=== PATIENT | female | born 2000 ===

== ENCOUNTER 2024-06-01 14:53 | Inpatient (IN) | payer MEDICAID ==
[2024-06-01 15:49] LABS: APPEARANCE,URINE SLT CLOUDY; BILIRUBIN,URINE NEGATIVE (NEGATIVE); COLOR,URINE YELLOW; GLUCOSE,URINE >=1000 mg/dL (NEGATIVE); KETONES,URINE NEGATIVE (NEGATIVE); LEUKOCYTE ESTERASE,URINE NEGATIVE (NEGATIVE); NITRITE,URINE NEGATIVE (NEGATIVE); OCCULT BLOOD,URINE NEGATIVE (NEGATIVE); PH,URINE 5.5 (5.0-8.0); PROTEIN,URINE 30 mg/dL (NEGATIVE); UROBILINOGEN,URINE 0.2 EU/dL (<2.0)
[2024-06-01 15:50] LABS: HEMATOCRIT 32.8 % (37.0-47.0); HEMOGLOBIN 10.8 g/dL (12.0-16.0); MEAN CORPUSCULAR HEMOGLOBIN 26.3 pg (28.0-32.0); MEAN CORPUSCULAR HGB CONC 32.9 g/dL (32.0-36.0); MEAN PLATELET VOLUME 11.2 fL (9.4-12.3); PLATELET COUNT,PLT 229 K/uL (150-400); WHITE BLOOD CELL COUNT,WBC 8.24 K/uL (3.9-11.3)
[2024-06-01 16:18] LABS: CREATININE,URINE RAND 92.4 mg/dL; PROTEIN CREATININE RATIO,URINE 0.9; PROTEIN,URINE RANDOM 80.1 mg/dL (<11.9)
[2024-06-01 16:25] LABS: A/G RATIO 0.5 (0.9-1.6); ALBUMIN 2.3 g/dL (3.4-5.0); BILIRUBIN TOTAL 0.5 mg/dL (0.2-1.0); CALCIUM 8.9 mg/dL (8.5-10.1); CARBON DIOXIDE,CO2 19.3 mmol/L (21.0-32.0); CREATININE 0.6 mg/dL (0.6-1.0); EST CRCL DRUG DOSING (CG) 136.51 mL/min; POTASSIUM,K 3.9 mmol/L (3.5-5.1); PROTEIN TOTAL,TP 6.7 g/dL (6.4-8.2); URIC ACID 5.1 mg/dL (2.6-7.2)
[2024-06-01] MEDS ORDERED: Sodium Chloride 0.9% 2.5 ML Syringe FLUSH PRN (16:46)
[2024-06-01] MEDS ORDERED: Sodium Chloride 0.9% 10 ML Syringe FLUSH PRN (16:46)
[2024-06-01] MEDS ORDERED: Sodium Chloride 0.9% 20 ML SDV IV PRN (16:46)
[2024-06-01] MEDS: Lactated Ringers 1,000 ML IV SCH (16:50)
[2024-06-01] MEDS ORDERED: Oxytocin/0.9 % Sodium Chloride 30 UNIT/500 ML BAG IV SCH (17:00)
[2024-06-01] MEDS ORDERED: Oxytocin 10 Units/1 ML SDV ONE (17:05)
[2024-06-01] MEDS ORDERED: Tranexamic Acid 1,000 MG/10 ML Vial ONE (17:05)
[2024-06-01] MEDS ORDERED: Ropivacaine 0.5% 5 MG/ML 30 ML SDV ONE (17:05)
[2024-06-01] MEDS ORDERED: Bupivacaine 0.25% 30 ML SDV ONE (17:05)
[2024-06-01] MEDS ORDERED: Ondansetron 4 MG/2 ML SDV ONE (17:05)
[2024-06-01] MEDS ORDERED: Phenylephrine HCl In 0.9% NaCl 1 MG/10 ML Syringe ONE (17:05)
[2024-06-01] MEDS ORDERED: Morphine PF 10 MG/10 ML SDV ONE (17:05)
[2024-06-01] MEDS ORDERED: ceFAZolin 1 GM Vial ONE (17:05)
[2024-06-01] MEDS ORDERED: fentaNYL 100 MCG/2 ML SDV ONE (17:05)
[2024-06-01] MEDS ORDERED: Ketorolac 30 MG/ML SDV ONE (17:05)
[2024-06-01] MEDS ORDERED: EPINEPHrine 1 MG/1 ML Amp ONE (17:05)
[2024-06-01] MEDS ORDERED: droPERidol 5 MG/2 ML SDV IVPUSH PRN (18:33)
[2024-06-01] MEDS ORDERED: fentaNYL 50 MCG/ML SDV IVPUSH PRN (18:33)
[2024-06-01] MEDS ORDERED: Albuterol 0.083% 2.5 MG/3 ML Neb Soln NEB PRN (18:33)
[2024-06-01] MEDS ORDERED: Acetaminophen/oxyCODONE 325-5 MG Tab PO PRN (18:33)
[2024-06-01] MEDS ORDERED: HYDROmorphone 1 MG/ML Syringe IVPUSH PRN (18:33)
[2024-06-01] MEDS ORDERED: Naloxone 0.4 MG/ML SDV IVPUSH PRN (18:33)
[2024-06-01] MEDS ORDERED: diphenhydrAMINE 50 MG/ML SDV IVPUSH PRN (18:33)
[2024-06-01] MEDS ORDERED: ePHEDrine 50 MG/ML SDV IVPUSH PRN (18:33)
[2024-06-01] MEDS ORDERED: Metoclopramide 10 MG/2 ML SDV IVPUSH PRN (18:33)
[2024-06-01] MEDS ORDERED: Phenylephrine HCl In 0.9% NaCl 1 MG/10 ML Syringe IVPUSH PRN (18:33)
[2024-06-01] MEDS ORDERED: fentaNYL 100 MCG/2 ML SDV IVPUSH PRN (18:33)
[2024-06-01] MEDS ORDERED: Ondansetron 4 MG/2 ML SDV IVPUSH PRN ×2 (18:33)
[2024-06-01] MEDS ORDERED: Nalbuphine 10 MG/1 ML Vial IVPUSH PRN (18:33)
[2024-06-01] MEDS: Acetaminophen 1,000 MG in Premix Bag 1 BAG IV ONE (20:10)
[2024-06-02] MEDS: Acetaminophen 1,000 MG in Premix Bag 1 BAG IV SCH (01:43)
[2024-06-02] MEDS: Citric Acid/Sodium Citrate Solution 30 ML Cup PO ONE (03:31)
[2024-06-02] MEDS: Misoprostol 200 MCG Tab ONE (03:31)
[2024-06-02] MEDS: ceFAZolin 2 GM in Sodium Chloride 0.9% 50 ML IV ONE (03:31)
[2024-06-02] MEDS: Prenatal Multivitamin with Calcium/Folic Acid/Iron Tab PO SCH (08:38)
[2024-06-02] MEDS: Morphine 2 MG/ML SYRINGE IVPUSH PRN (12:33)
[2024-06-02] MEDS ORDERED: Lanolin 100% Cream 7 GM Tube TOP PRN (13:38)
[2024-06-02] MEDS ORDERED: Tranexamic Acid IN NACL,ISO-OS 1,000 MG in Premix Bag 1 BAG IV PRN (13:38)
[2024-06-02] MEDS ORDERED: Sodium Chloride 0.9% 10 ML Syringe FLUSH PRN (13:38)
[2024-06-02] MEDS ORDERED: Bisacodyl 5 MG Tab PO PRN (13:38)
[2024-06-02] MEDS ORDERED: oxyCODONE 5 MG Tab PO PRN ×2 (13:38→18:23)
[2024-06-02] MEDS ORDERED: Misoprostol 200 MCG Tab RECTAL PRN (13:38)
[2024-06-02] MEDS ORDERED: Oxytocin/0.9 % Sodium Chloride 30 UNIT/500 ML BAG IV SCH (13:38)
[2024-06-02] MEDS ORDERED: Ondansetron 4 MG/2 ML SDV IVPUSH PRN (13:38)
[2024-06-02] MEDS ORDERED: Polyethylene Glycol 3350 Powder 17 GM Packet PO PRN (13:38)
[2024-06-02] MEDS ORDERED: Carboprost Tromethamine 250 MCG/1 mL Vial IM PRN (13:38)
[2024-06-02] MEDS ORDERED: Sennosides 8.6 MG Tab PO PRN (13:38)
[2024-06-02] MEDS ORDERED: Sodium Chloride 0.9% 2.5 ML Syringe FLUSH PRN (13:38)
[2024-06-02 14:12] LABS: BASOPHILS ABSOLUTE AUTO 0.03 K/uL (0.00-0.20); BASOPHILS PERCENT AUTO 0.2 % (0.0-1.0); EOSINOPHILS ABSOLUTE AUTO 0.01 K/uL (0.00-0.45); EOSINOPHILS PERCENT AUTO 0.1 % (0.0-6.0); HEMATOCRIT 22.9 % (37.0-47.0); HEMOGLOBIN 7.6 g/dL (12.0-16.0); IMMATURE GRAN ABSOLUTE AUTO 0.04 K/uL (0.00-0.05); IMMATURE GRAN PERCENT AUTO 0.3 % (0.0-0.4); LYMPHOCYTES ABSOLUTE AUTO 2.34 K/uL (1.00-4.80); LYMPHOCYTES PERCENT AUTO 17.1 % (24.0-44.0); MEAN CORPUSCULAR HEMOGLOBIN 26.5 pg (28.0-32.0); MEAN CORPUSCULAR HGB CONC 33.2 g/dL (32.0-36.0); MEAN CORPUSCULAR VOLUME 79.8 fL (83.0-99.0); MEAN PLATELET VOLUME 10.6 fL (9.4-12.3); MONOCYTES ABSOLUTE AUTO 1.37 K/uL (0.00-0.80); NEUTROPHILS ABSOLUTE AUTO 9.87 K/uL (1.80-7.70); NEUTROPHILS PERCENT AUTO 72.3 % (41.0-71.0); PLATELET COUNT,PLT 225 K/uL (150-400); RED BLOOD CELL COUNT 2.87 M/uL (4.10-5.30); WHITE BLOOD CELL COUNT,WBC 13.66 K/uL (3.9-11.3)
[2024-06-02] MEDS: Diphtheria,Pertussis(Acell),Tetanus Vaccine 0.5 ML Syringe IM ONE (14:23)
[2024-06-02] MEDS: Measles, Mumps & Rubella Vaccine 0.5 ML SDV SUBCUT ONE (14:24)
[2024-06-02] MEDS: Ketorolac 30 MG/ML SDV IVPUSH SCH (14:46)
[2024-06-02] MEDS: Methylergonovine 0.2 MG/1 ML Amp IM ONE (15:27)
[2024-06-02] MEDS: Docusate Sodium 250 MG Cap PO SCH (15:27)
[2024-06-02] MEDS: Naloxone 0.4 MG/ML SDV IVPUSH ONE (15:28)
[2024-06-02] MEDS ORDERED: Ibuprofen 800 MG Tab PO PRN (18:23)
[2024-06-02] MEDS ORDERED: Acetaminophen 500 MG Tab PO PRN (18:23)
== END 2024-06-03 12:50 | disposition home or self-care (01) | DRG 787 ==
LOC: MW.OB 14:53 → MW.OBCHECK 14:53 → MERGE 16:46 → MW.OBCHECK 16:46 → MW.OB 16:46
PROVIDERS: ADMIT Obstetrics & Gynecology; ATTEND Obstetrics & Gynecology
PROC: 10D00Z1 Extraction of Products of Conception, Low, Open Approach (ICD-10-PCS; principal; 2024-06-01 17:20)
DX: O24.425 Gestational diabetes mellitus in childbirth, controlled by oral hypoglycemic drugs (principal); D62 Acute posthemorrhagic anemia; O14.93 Unspecified pre-eclampsia, third trimester; O72.1 Other immediate postpartum hemorrhage; Z3A.37 37 weeks gestation of pregnancy; Z37.0 Single live birth; O34.211 Maternal care for low transverse scar from previous cesarean delivery; O90.81 Anemia of the puerperium
CPT/HCPCS: 36415; 59025; 59514; 80053; 81003; 82570; 84156; 84550; 85025; 85027; 86592; 86850; 86900; 86901; A9270-GY; J0131; J0171; J0665; J0690; J1100; J1885; J2270; J2274; J2371; J2405; J2590; J2795; J3010; J3490; J7120

== ENCOUNTER 2024-07-18 10:20 | Emergency (ER) | payer MEDICAID ==
[2024-07-18 12:13] LABS: BASOPHILS ABSOLUTE AUTO 0.04 K/uL (0.00-0.20); BASOPHILS PERCENT AUTO 0.7 % (0.0-1.0); EOSINOPHILS ABSOLUTE AUTO 0.06 K/uL (0.00-0.45); EOSINOPHILS PERCENT AUTO 1.1 % (0.0-6.0); HEMATOCRIT 32.4 % (37.0-47.0); HEMOGLOBIN 10.2 g/dL (12.0-16.0); IMMATURE GRAN ABSOLUTE AUTO 0.01 K/uL (0.00-0.05); IMMATURE GRAN PERCENT AUTO 0.2 % (0.0-0.4); LYMPHOCYTES ABSOLUTE AUTO 1.46 K/uL (1.00-4.80); LYMPHOCYTES PERCENT AUTO 26.4 % (24.0-44.0); MEAN CORPUSCULAR HEMOGLOBIN 25.4 pg (28.0-32.0); MEAN CORPUSCULAR HGB CONC 31.5 g/dL (32.0-36.0); MEAN CORPUSCULAR VOLUME 80.8 fL (83.0-99.0); MEAN PLATELET VOLUME 9.3 fL (9.4-12.3); MONOCYTES ABSOLUTE AUTO 0.32 K/uL (0.00-0.80); MONOCYTES PERCENT AUTO 5.8 % (0.0-8.0); NEUTROPHILS ABSOLUTE AUTO 3.64 K/uL (1.80-7.70); NEUTROPHILS PERCENT AUTO 65.8 % (41.0-71.0); PLATELET COUNT,PLT 328 K/uL (150-400); RED BLOOD CELL COUNT 4.01 M/uL (4.10-5.30); WHITE BLOOD CELL COUNT,WBC 5.53 K/uL (3.9-11.3)
[2024-07-18 12:46] LABS: ALBUMIN 3.7 g/dL (3.4-5.0); BILIRUBIN TOTAL 0.4 mg/dL (0.2-1.0); CALCIUM 8.6 mg/dL (8.5-10.1); CARBON DIOXIDE,CO2 27.5 mmol/L (21.0-32.0); CREATININE 0.6 mg/dL (0.6-1.0); EST CRCL DRUG DOSING (CG) 136.51 mL/min; POTASSIUM,K 3.9 mmol/L (3.5-5.1); PROTEIN TOTAL,TP 7.5 g/dL (6.4-8.2)
[2024-07-18 14:10] LABS: APPEARANCE,URINE CLEAR; BILIRUBIN,URINE NEGATIVE (NEGATIVE); COLOR,URINE YELLOW; GLUCOSE,URINE 250 mg/dL (NEGATIVE); KETONES,URINE NEGATIVE (NEGATIVE); LEUKOCYTE ESTERASE,URINE NEGATIVE (NEGATIVE); NITRITE,URINE NEGATIVE (NEGATIVE); OCCULT BLOOD,URINE LARGE (NEGATIVE); PROTEIN,URINE NEGATIVE (NEGATIVE); UROBILINOGEN,URINE 0.2 EU/dL (<2.0)
[2024-07-18 14:26] LABS: BACTERIA,URINE NOT SEEN (NEGATIVE); EPITHELIAL CELLS,URINE RARE (NONE-FEW); WBC,URINE 0-1 (0-5/HPF)
== END 2024-07-18 17:01 | disposition home or self-care (01) ==
LOC: EDBD 10:20 → MW.ED 10:20 → MERGE 10:20 → MW.ED 17:01
DX: O72.1 Other immediate postpartum hemorrhage (principal); E11.9 Type 2 diabetes mellitus without complications; Z75.8 Other problems related to medical facilities and other health care
CPT/HCPCS: 36415; 76830; 76830-26; 76857; 76857-26; 80053; 81001; 84702; 85025; 99284

== ENCOUNTER 2024-07-18 10:24 | Emergency (ER) | payer MEDICAID | END 2024-07-18 17:44 | disposition left against medical advice (07) | LOC: MW.ED 10:24 → MERGE 10:24 → MW.ED 17:44 | DX: Z53.21 Procedure and treatment not carried out due to patient leaving prior to being seen by health care provider (principal) ==